=== PATIENT | female | born 1935 | race Caucasian/White ===

== ENCOUNTER 2016-11-07 16:30 | Outpatient (CLI) | payer MEDICARE, BC | END 2016-11-07 16:31 | disposition home or self-care (01) | DX: R06.00 Dyspnea, unspecified (principal) ==

== ENCOUNTER 2016-11-14 | Outpatient (CLI) | payer MEDICARE, BC | END 2016-11-14 12:37 | disposition critical access hospital (66) | DX: R06.00 Dyspnea, unspecified (principal) | CPT/HCPCS: A0425; A0427 ==

== ENCOUNTER 2016-11-14 12:46 | Inpatient (IN) | payer MEDICARE, BC ==
[2016-11-14] MEDS ORDERED: IPRATROPIUM/ALBUTEROL 3 ML NEB INH STA (13:03)
[2016-11-14] MEDS ORDERED: DEXAMETHASONE 10 MG/ML VIAL IVP STA (13:04)
[2016-11-14] MEDS ORDERED: DEXAMETHASONE 10 MG/ML VIAL ONE (13:08)
[2016-11-14] MEDS ORDERED: IPRATROPIUM/ALBUTEROL 3 ML NEB INH ONE (13:12)
[2016-11-14] MEDS ORDERED: diltiaZEM INJ 5 MG/ML VIAL IVP STA ×3 (13:22→15:17)
[2016-11-14] MEDS ORDERED: diltiaZEM INJ 5 MG/ML VIAL ONE ×3 (13:37→15:30)
[2016-11-14] MEDS ORDERED: ADENOSINE 6 MG/2 ML VIAL IVP STA (14:11)
[2016-11-14] MEDS ORDERED: ADENOSINE 6 MG/2 ML VIAL IVP ONE (14:14)
[2016-11-14] MEDS ORDERED: AZITHROMYCIN INJ 500 MG in SODIUM CHLORIDE 0.9% 250 ML IV STA (15:16)
[2016-11-14] MEDS ORDERED: cefTRIAXone 1 GM in SODIUM CHLORIDE 0.9% MINIBAG 100 ML IV STA (15:16)
[2016-11-14] MEDS ORDERED: ALBUTEROL NEB 2.5 MG/3 ML INH STA (15:22)
[2016-11-14] MEDS ORDERED: ACETAMINOPHEN 325 MG TABLET PO PRN (15:27)
[2016-11-14] MEDS ORDERED: ONDANSETRON 4 MG/2 ML VIAL IVP PRN (15:27)
[2016-11-14] MEDS ORDERED: SODIUM CHLORIDE FLUSH 0.9% 10 ML SYRINGE IVP PRN (15:27)
[2016-11-14] MEDS ORDERED: ALBUTEROL NEB 2.5 MG/3 ML INH PRN (15:27)
[2016-11-14] MEDS ORDERED: HYDROcod/ACETAM 5/325 MG TABLET PO PRN (15:27)
[2016-11-14] MEDS ORDERED: cefTRIAXone 1 GM VIAL ONE (15:30)
[2016-11-14] MEDS ORDERED: diltiaZEM INJ 125 MG in DEXTROSE 5% 100 ML IV ONE (15:45)
[2016-11-14] MEDS ORDERED: ALBUTEROL NEB 2.5 MG/3 ML INH ONE (15:59)
[2016-11-14] MEDS: SODIUM CHLORIDE 0.9% 1,000 ML IV SCH (16:55)
[2016-11-14] MEDS ORDERED: methylPREDNISolone SUCCINATE 125 MG/2 ML VIAL IVP SCH (17:00)
[2016-11-14] MEDS: INSULIN ASPART 300 UNIT/3 ML PEN SUBQ SCH ×2 (17:17→21:30)
[2016-11-14] MEDS: SACCHAROMYCES BOULARDII 250 MG CAPSULE PO SCH (17:17)
[2016-11-14] MEDS: SODIUM CHLORIDE FLUSH 0.9% 10 ML SYRINGE IVP SCH (21:34)
[2016-11-14] MEDS: methylPREDNISolone SUCCINATE 40 MG/ML VIAL IVP SCH (21:34)
[2016-11-14] MEDS ORDERED: INSULIN ASPART 300 UNIT/3 ML PEN SUBQ SCH (21:50)
[2016-11-14] MEDS ORDERED: DEXTROSE 5% 1,000 ML IV PRN (21:51)
[2016-11-14] MEDS ORDERED: DEXTROSE 50% ABBOJECT 25 GM/50 ML SYRINGE IVP PRN (21:51)
[2016-11-14] MEDS ORDERED: GLUCAGON 1 MG/ML VIAL SUBQ PRN (21:51)
[2016-11-14] MEDS ORDERED: DEXTROSE GEL 37.5 GM TUBE PO PRN (21:51)
[2016-11-14] MEDS: INSULIN GLARGINE 300 UNIT/3 ML PEN SUBQ SCH (22:52)
[2016-11-15] MEDS ORDERED: diltiaZEM CD 180 MG CAPSULE PO SCH ×2 (02:00→09:00)
[2016-11-15] MEDS: SODIUM CHLORIDE FLUSH 0.9% 10 ML SYRINGE IVP SCH ×3 (05:52→21:13)
[2016-11-15] MEDS ORDERED: FUROSEMIDE 20 MG/2 ML VIAL IVP ONE (07:43)
[2016-11-15] MEDS: SACCHAROMYCES BOULARDII 250 MG CAPSULE PO SCH ×2 (08:12→17:05)
[2016-11-15] MEDS: cefTRIAXone 2 GM in SODIUM CHLORIDE 0.9% MINIBAG 100 ML IV SCH (08:12)
[2016-11-15] MEDS: ENOXAPARIN 40 MG/0.4 ML SYRINGE SUBQ SCH (08:13)
[2016-11-15] MEDS: methylPREDNISolone SUCCINATE 40 MG/ML VIAL IVP SCH ×2 (08:13→21:10)
[2016-11-15] MEDS: INSULIN ASPART 300 UNIT/3 ML PEN SUBQ SCH ×4 (08:54→21:11)
[2016-11-15] MEDS: SODIUM CHLORIDE 0.9% 1,000 ML IV SCH ×2 (12:00→17:05)
[2016-11-15] MEDS: IPRATROPIUM/ALBUTEROL 3 ML NEB INH PRN (19:37)
[2016-11-15] MEDS ORDERED: INSULIN GLARGINE 300 UNIT/3 ML PEN SUBQ SCH (21:00)
[2016-11-15] MEDS: INSULIN GLARGINE 300 UNIT/3 ML PEN SUBQ SCH (21:12)
[2016-11-15] MEDS ORDERED: diltiaZEM INJ 5 MG/ML VIAL IVP SCH (21:35)
[2016-11-16] MEDS: SODIUM CHLORIDE FLUSH 0.9% 10 ML SYRINGE IVP SCH ×3 (06:10→21:13)
[2016-11-16] MEDS: INSULIN ASPART 300 UNIT/3 ML PEN SUBQ SCH ×4 (08:26→21:12)
[2016-11-16] MEDS: diltiaZEM CD 180 MG CAPSULE PO SCH (08:31)
[2016-11-16] MEDS: cefTRIAXone 2 GM in SODIUM CHLORIDE 0.9% MINIBAG 100 ML IV SCH (08:31)
[2016-11-16] MEDS: SACCHAROMYCES BOULARDII 250 MG CAPSULE PO SCH ×2 (08:31→17:14)
[2016-11-16] MEDS: methylPREDNISolone SUCCINATE 40 MG/ML VIAL IVP SCH (08:33)
[2016-11-16] MEDS: ENOXAPARIN 40 MG/0.4 ML SYRINGE SUBQ SCH (08:33)
[2016-11-16] MEDS: diltiaZEM CD 240 MG CAPSULE PO SCH (08:34)
[2016-11-16] MEDS: AZITHROMYCIN INJ 500 MG in SODIUM CHLORIDE 0.9% 250 ML IV SCH (10:07)
[2016-11-16] MEDS: IPRATROPIUM/ALBUTEROL 3 ML NEB INH PRN (10:12)
[2016-11-16] MEDS ORDERED: MORPHINE SOL 10 MG/0.5 ML SYRINGE PO PRN (10:53)
[2016-11-16] MEDS ORDERED: LORazepam 1 MG/0.5 ML ORAL SYRINGE PO PRN (10:53)
[2016-11-16] MEDS ORDERED: FUROSEMIDE 40 MG/4 ML VIAL IVP SCH (11:00)
[2016-11-16] MEDS: LORazepam 2 MG/ML SYRINGE IVP ONE ×2 (11:19→12:53)
[2016-11-16] MEDS ORDERED: MORPHINE 10 MG/ML VIAL IVP ONE (11:30)
[2016-11-16] MEDS: FUROSEMIDE 40 MG/4 ML VIAL IVP SCH (17:14)
[2016-11-16] MEDS ORDERED: INSULIN ASPART 300 UNIT/3 ML PEN SUBQ ONE (18:00)
[2016-11-16] MEDS: INSULIN GLARGINE 300 UNIT/3 ML PEN SUBQ SCH (21:12)
[2016-11-17] MEDS: FUROSEMIDE 40 MG/4 ML VIAL IVP SCH (06:14)
[2016-11-17] MEDS: SODIUM CHLORIDE FLUSH 0.9% 10 ML SYRINGE IVP SCH (06:15)
[2016-11-17] MEDS: INSULIN ASPART 300 UNIT/3 ML PEN SUBQ SCH ×2 (08:00→12:03)
[2016-11-17] MEDS: ENOXAPARIN 40 MG/0.4 ML SYRINGE SUBQ SCH (08:01)
[2016-11-17] MEDS: cefTRIAXone 2 GM in SODIUM CHLORIDE 0.9% MINIBAG 100 ML IV SCH (08:01)
[2016-11-17] MEDS: SACCHAROMYCES BOULARDII 250 MG CAPSULE PO SCH (08:01)
[2016-11-17] MEDS: diltiaZEM CD 240 MG CAPSULE PO SCH (08:02)
[2016-11-17] MEDS: diltiaZEM CD 180 MG CAPSULE PO SCH (08:02)
[2016-11-17] MEDS ORDERED: POLYETHYLENE GLYCOL 3350 17 GM PACKET PO SCH (09:00)
[2016-11-17] MEDS: AZITHROMYCIN INJ 500 MG in SODIUM CHLORIDE 0.9% 250 ML IV SCH (09:41)
== END 2016-11-17 12:44 | disposition hospice, home (50) | DRG 291 ==
DX: I11.0 Hypertensive heart disease with heart failure (principal); J44.1 Chronic obstructive pulmonary disease with (acute) exacerbation; J45.909 Unspecified asthma, uncomplicated; J18.1 Lobar pneumonia, unspecified organism; I10 Essential (primary) hypertension; J96.20 Acute and chronic respiratory failure, unspecified whether with hypoxia or hypercapnia; J44.0 Chronic obstructive pulmonary disease with (acute) lower respiratory infection; C34.90 Malignant neoplasm of unspecified part of unspecified bronchus or lung; C79.9 Secondary malignant neoplasm of unspecified site; I50.31 Acute diastolic (congestive) heart failure; I48.91 Unspecified atrial fibrillation; E11.9 Type 2 diabetes mellitus without complications; K52.9 Noninfective gastroenteritis and colitis, unspecified; H91.90 Unspecified hearing loss, unspecified ear; R32 Unspecified urinary incontinence; Z79.84 Long term (current) use of oral hypoglycemic drugs; Z87.891 Personal history of nicotine dependence; Z79.899 Other long term (current) drug therapy; Z85.3 Personal history of malignant neoplasm of breast; Z90.5 Acquired absence of kidney; Z99.81 Dependence on supplemental oxygen; Z66 Do not resuscitate